=== PATIENT | male | born 1985 | race Two or more races ===

== ENCOUNTER 2017-08-02 15:00 | Emergency (ER) | payer BC, MEDICAID ==
[2017-08-02 15:10] VITALS: BP 141/97
[2017-08-02] MEDS ORDERED: Sodium Chloride 0.9% 10 ML Syringe FLUSH PRN (15:45)
[2017-08-02] MEDS ORDERED: Ondansetron 4 MG/2 ML SDV IVPUSH ONE (15:45)
[2017-08-02] MEDS ORDERED: Sodium Chloride 0.9% 1,000 ML IV SCH (15:45)
[2017-08-02] MEDS ORDERED: HYDROmorphone 1 MG/ML Syringe IVPUSH ONE (17:14)
--- NOTE | 2017-08-02 18:37 | EDM.PDOC ---
ED HPI GENERAL MEDICAL PROBLEM - General Chief Complaint: Chest Pain Stated Complaint: CHEST PAIN Time Seen by Provider: 08/02/17 15:36 Source of Information: Reports: Patient, RN Notes Reviewed - History of Present Illness INITIAL COMMENTS - FREE TEXT/NARRATIVE: 32 year old male comes in with upper abd pain, cramping, feeling of being bloated. Started with discomfort 3 days ago. Many episodes of watery diarrhea yesterday. Decreased appetite, nausea, no vomiting. No fever or chills. Pain does radiate up to lower mid chest. Not short of breath, not coughing any more than usual. Chest Pain Score (Numeric/FACES): 6 - Related Data Allergies Allergy/AdvReac Type Severity Reaction Status Date / Time No Known Allergies Allergy Verified 08/02/17 15:10 Home Meds: Home Meds Ciprofloxacin HCl [Cipro] 500 mg PO Q12HR #10 tablet 08/02/17 [Rx] Hydrocodone/Acetaminophen [[place] 5-325 Tablet] 1 each PO Q4H PRN #10 tablet [Rx] Omeprazole Magnesium [Prilosec Otc] 20 mg PO DAILY 08/02/17 [History] Past Medical History Other HEENT History: Wears glasses Cardiovascular History: Reports: High Cholesterol Other Gastrointestinal History: Umbilical hernia Musculoskeletal History: Reports: Other (See Below) - Past Surgical History GI Surgical History: Reports: Hernia, Abdominal Social & Family History - Tobacco Use Smoking Status *Q: Former Smoker Years of Tobacco use: 10 Packs/Tins Daily: 0.2 Used Tobacco, but Quit: Yes Month Tobacco Last Used: October 2016 - Caffeine Use Caffeine Use: Reports: Coffee - Alcohol Use Days Per Week of Alcohol Use: 2 Number of Drinks Per Day: 7 Total Drinks Per Week: 14 - Recreational Drug Use Recreational Drug Use: No - Living Situation & Occupation Living situation: Reports: Single, with Significant Other, with Family Occupation: Unemployed ED ROS GENERAL - Review of Systems Review Of Systems: See Below Constitutional: Denies: Fever, Chills HEENT: Denies: Sinus Problem, Throat Pain Respiratory: Denies: Shortness of Breath, Pleuritic Chest Pain Cardiovascular: Reports: Chest Pain (lower ant chest) GI/Abdominal: Reports: Abdominal Pain (primarily upper mid abd and R upper abd) , Diarrhea (multiple episoded of watery diarrhea), Decreased Appetite, Nausea. Denies: Vomiting Musculoskeletal: Reports: Neck Pain Skin: Denies: Rash Neurological: Reports: Dizziness. Denies: Headache ED EXAM, GI/ABD - Physical Exam Exam: See Below General Appearance: Alert, Mild Distress Eyes: Bilateral: Normal Appearance Throat/Mouth: Normal Inspection, Normal Oropharynx Neck: Supple Respiratory/Chest: No Respiratory Distress, Lungs Clear, Normal Breath Sounds Cardiovascular: Tachycardia GI/Abdominal Exam: Tender (upper mid abd and R upper abd). No: Guarding, Rebound Back Exam: No: CVA Tenderness (L), CVA Tenderness (R) Extremities: Normal Inspection Neurological: Alert, Oriented, No Motor/Sensory Deficits Skin Exam: Warm, Dry, Normal Color EKG INTERPRETATION EKG Date: 08/02/17 Rhythm: NSR [place]: Normal P-Wave: Present QRS: Normal ST-T: Other (T wave inversion lead III) Course - Vital Signs Last Recorded V/S: Last Vital Signs Temp 97.6 F 08/02/17 15:06 Pulse 111 H 08/02/17 15:06 Resp 18 08/02/17 15:06 BP 141/97 H 08/02/17 15:06 Pulse Ox 94 L 08/02/17 15:06 - Orders/Labs/Meds Orders: Active Orders 24 hr Category Date Time Status EKG 12 Lead [EKG Documentation Completion] [RC] STAT Care 08/02/17 15:43 Active Peripheral IV Care [RC] . DIRECTED Care 08/02/17 15:45 Active Abdomen 2V AP Flat Upright [CR] Stat Exams 08/02/17 17:15 Taken Sodium Chloride 0.9% [Normal Saline] 1,000 ml Med 08/02/17 15:45 Active IV ONETIME Sodium Chloride 0.9% [Saline Flush] Med 08/02/17 15:45 Active 10 ml FLUSH ASDIRECTED PRN Peripheral IV Insertion Adult [OM.PC] Stat Oth 08/02/17 15:44 Ordered Medication Orders Sodium Chloride (Normal Saline) 1,000 mls @ 999 mls/hr IV ONETIME KLARISSA Last Admin: 08/02/17 15:52 Dose: 999 mls/hr Sodium Chloride (Saline Flush) 10 ml FLUSH ASDIRECTED PRN PRN Reason: Keep Vein Open Last Admin: 08/02/17 15:53 Dose: 10 ml Labs: Laboratory Tests 08/02/17 08/02/17 Range/Units 15:28 15:28 WBC 11.23 H (4.23-9.07) K/mm3 RBC 5.68 (4.63-6.08) M/mm3 Hgb 16.7 (13.7-17.5) gm/L Hct 48.0 (40.1-51.0) % MCV 84.5 (79.0-92.2) fl MCH 29.4 (25.7-32.2) pg MCHC 34.8 (32.2-35.5) g/dl RDW Std Deviation 43.7 (35.1-43.9) fL Plt Count 262 (163-337) K/mm3 MPV 10.3 (9.4-12.3) fl Neut % (Auto) 65.5 (34.0-67.9) % Lymph % (Auto) 24.9 (21.8-53.1) % [place] % (Auto) 6.8 (5.3-12.2) % Eos % (Auto) 2.0 (0.8-7.0) Baso % (Auto) 0.4 (0.1-1.2) % Neut # (Auto) 7.35 H (1.78-5.38) K/mm3 Lymph # (Auto) 2.80 (1.32-3.57) K/mm3 [place] # (Auto) 0.76 (0.30-0.82) K/mm3 Eos # (Auto) 0.23 (0.04-0.54) K/mm3 Baso # (Auto) 0.05 (0.01-0.08) K/mm3 Sodium 138 (136-145) mEq/L Potassium 4.1 (3.5-5.1) mEq/L Chloride 101 (98-107) mEq/L Carbon Dioxide 26 (21-32) mEq/L Anion Gap 15.1 H (5-15) BUN 15 (7-18) mg/dL Creatinine 1.0 (0.7-1.3) mg/dL Est Cr Clr Drug Dosing 96.59 mL/min Estimated GFR (MDRD) > 60 (>60) mL/min BUN/Creatinine Ratio 15.0 (14-18) Glucose 97 (74-106) mg/dL Calcium 9.3 (8.5-10.1) mg/dL Total Bilirubin 0.6 (0.2-1.0) mg/dL AST 51 H (15-37) U/L ALT 81 H (16-63) U/L Alkaline Phosphatase 99 (46-116) U/L Total Protein 8.8 H (6.4-8.2) g/dl Albumin 3.8 (3.4-5.0) g/dl Globulin 5.0 gm/dL Albumin/Globulin Ratio 0.8 L (1-2) Lipase 122 (73-393) U/L Meds: Medications Generic Name Dose Route Start Last Admin Trade Name Freq PRN Reason Stop Dose Admin Sodium Chloride 1,000 mls @ 999 mls/hr 08/02/17 15:45 08/02/17 15:52 Normal Saline IV 999 mls/hr ONETIME KLARISSA Administration Sodium Chloride 10 ml 08/02/17 15:45 08/02/17 15:53 Saline Flush FLUSH 10 ml ASDIRECTED PRN Administration Keep Vein Open Discontinued Medications Generic Name Dose Route Start Last Admin Trade Name Freq PRN Reason Stop Dose Admin Hydromorphone HCl 1 mg 08/02/17 17:14 08/02/17 17:33 Dilaudid IVPUSH 08/02/17 17:15 1 mg ONETIME ONE Administration Ondansetron HCl 4 mg 08/02/17 15:45 08/02/17 15:52 Zofran IVPUSH 08/02/17 15:46 4 mg ONETIME ONE Administration Departure - Departure Time of Disposition: 18:28 Disposition: Home, Self-Care 01 Condition: Fair Clinical Impression: Diarrhea Qualifiers: Diarrhea type: unspecified type Qualified Code(s): R19.7 - Diarrhea, unspecified - Discharge Information Prescriptions: Ciprofloxacin HCl [Cipro] 500 mg PO Q12HR #10 tablet Hydrocodone/Acetaminophen [[place] 5-325 Tablet] 1 each PO Q4H PRN #10 tablet PRN Reason: Pain Instructions: Diarrhea, Adult Referrals: PCP,None [Primary Care Provider] - Forms: ED Department Discharge Additional Instructions: Clear liquids until tomorrow afternoon, than careful bland diet as tolerated. Cipro antibiotic 500 mg twice daily for 5 days, start that tonight and take that twice daily until gone. Probiotic twice daily, that is available OTC, pick that up when you get your meds filled tonight. Tylenol for mild to moderate discomfort or Hydrocodone if needed for severe pain. Follow up clinic if not much better within 2 to 3 days as expected, return to ED as needed. - My Orders Last 24 Hours: My Active Orders 08/02/17 15:43 EKG 12 Lead [EKG Documentation Completion] [RC] STAT 08/02/17 15:44 Peripheral IV Insertion Adult [OM.PC] Stat 08/02/17 15:45 Peripheral IV Care [RC] . DIRECTED Sodium Chloride 0.9% [Normal Saline] 1,000 ml IV ONETIME Sodium Chloride 0.9% [Saline Flush] 10 ml FLUSH ASDIRECTED PRN 08/02/17 17:15 Abdomen 2V AP Flat Upright [CR] Stat - Assessment/Plan Last 24 Hours: My Active Orders 08/02/17 15:43 EKG 12 Lead [EKG Documentation Completion] [RC] STAT 08/02/17 15:44 Peripheral IV Insertion Adult [OM.PC] Stat 08/02/17 15:45 Peripheral IV Care [RC] . DIRECTED Sodium Chloride 0.9% [Normal Saline] 1,000 ml IV ONETIME Sodium Chloride 0.9% [Saline Flush] 10 ml FLUSH ASDIRECTED PRN 08/02/17 17:15 Abdomen 2V AP Flat Upright [CR] Stat
--- NOTE | 2017-08-03 09:31 | CR ---
Abdomen: Supine and upright views of the abdomen were obtained. Comparison: No previous study. Bowel gas pattern appears within normal limits. No abnormal calcifications or soft tissue abnormality is seen. No free air is identified. Bony structures are within normal limits. Impression: 1. No abnormality identified on two-view abdominal x-ray. Diagnostic code #1
== END 2017-08-02 18:55 | disposition home or self-care (01) ==
LOC: JD.ED 15:00
DX: R19.7 Diarrhea, unspecified (principal); E78.00 Pure hypercholesterolemia, unspecified; Z79.899 Other long term (current) drug therapy; Z87.891 Personal history of nicotine dependence
CPT/HCPCS: 36415; 74019; 80053; 83690; 85025; 93005; 96361; 96374; 96375; 99285; J1170; J2405; J7040; J7050; 93010; 99284-25

== ENCOUNTER 2018-11-28 15:11 | Emergency (ER) | payer BC ==
--- NOTE | 2018-11-28 15:50 | EDM.PDOC ---
ED HPI GENERAL MEDICAL PROBLEM - General Chief Complaint: Chest Pain Stated Complaint: CHEST PAIN Time Seen by Provider: 11/28/18 15:21 Source of Information: Reports: Patient History Limitations: Reports: No Limitations - History of Present Illness INITIAL COMMENTS - FREE TEXT/NARRATIVE: The patient presents with chest pain. This has been going on since Tuesday. He was sleeping on his left side when it started that night. The pain comes and goes. There is nothing that he notices makes it worse or better. He has no history of heart problems. He has diabetes. He ran out of his metformin 3 weeks ago and did not get it refilled. He quit smoking about 2 years ago. He has no shortness of breath. He has no abdominal pain, nausea or vomiting. He says right before coming to the ER he urinated and had some dysuria. Onset: Gradual Duration: Day(s): Location: Reports: Chest Quality: Reports: Sharp Severity: Mild Improves with: Reports: None Worsens with: Reports: None Associated Symptoms: Reports: Chest Pain. 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 Chest Pain Score (Numeric/FACES): 5 - Related Data Allergies Allergy/AdvReac Type Severity Reaction Status Date / Time No Known Allergies Allergy Verified 11/28/18 15:25 Home Meds: Home Meds Omeprazole Magnesium [Prilosec Otc] 20 mg PO DAILY 08/02/17 [History] metFORMIN [Glucophage XR] 750 mg PO DAILY 11/28/18 [History] Past Medical History Other HEENT History: Wears glasses Cardiovascular History: Reports: High Cholesterol Respiratory History: Reports: Sleep Apnea Gastrointestinal History: Reports: GERD Other Gastrointestinal History: Umbilical hernia Musculoskeletal History: Reports: Other (See Below) Endocrine/Metabolic History: Reports: Diabetes, Type II - Past Surgical History GI Surgical History: Reports: Hernia, Abdominal Social & Family History - Tobacco Use Smoking Status *Q: Former Smoker Used Tobacco, but Quit: Yes Month/Year Tobacco Last Used: 2016 - Caffeine Use Caffeine Use: Reports: Coffee, Energy Drinks, Soda - Recreational Drug Use Recreational Drug Use: No - Living Situation & Occupation Living situation: Reports: Single, with Significant Other, with Family Occupation: Unemployed ED ROS GENERAL - Review of Systems Review Of Systems: See Below Constitutional: Reports: No Symptoms HEENT: Reports: No Symptoms Respiratory: Reports: No Symptoms Cardiovascular: Reports: Chest Pain Endocrine: Reports: No Symptoms GI/Abdominal: Reports: No Symptoms : Reports: Dysuria Musculoskeletal: Reports: No Symptoms ED EXAM, GENERAL - Physical Exam Exam: See Below Exam Limited By: No Limitations General Appearance: Alert, No Apparent Distress Ears: Normal External Exam Nose: Normal Inspection Head: Atraumatic, Normocephalic Neck: Normal Inspection Respiratory/Chest: No Respiratory Distress, Lungs Clear, Normal Breath Sounds Cardiovascular: Regular Rate, Rhythm, No Edema, No Murmur GI/Abdominal: Soft, Non-Tender, No Organomegaly, No Mass Back Exam: Normal Inspection Extremities: Normal Inspection Neurological: Alert, Oriented, No Motor/Sensory Deficits EKG INTERPRETATION EKG Date: 11/28/18 Time: 15:44 Rhythm: NSR Rate (Beats/Min): 88 [place]: Normal P-Wave: Present QRS: Normal ST-T: Normal QT: Normal Course - Vital Signs Last Recorded V/S: Last Vital Signs Temp 98.7 F 11/28/18 15:20 Pulse 95 11/28/18 15:20 Resp 30 H 11/28/18 15:20 BP 152/99 H 11/28/18 15:20 Pulse Ox 95 11/28/18 15:20 - Orders/Labs/Meds Orders: Active Orders 24 hr Category Date Time Status Cardiac Monitoring [RC] . DIRECTED Care 11/28/18 15:42 Active EKG Documentation Completion [RC] ASDIRECTED Care 11/28/18 15:27 Active Chest 2V [CR] Stat Exams 11/28/18 15:43 Taken EKG 12 Lead [EK] Stat Ther 11/28/18 15:27 Ordered Labs: Laboratory Tests 11/28/18 11/28/18 11/28/18 Range/Units 16:15 16:15 16:15 WBC 11.69 H (4.23-9.07) K/mm3 RBC 6.06 (4.63-6.08) M/mm3 Hgb 17.0 (13.7-17.5) gm/L Hct 50.2 (40.1-51.0) % MCV 82.8 D (79.0-92.2) fl MCH 28.1 (25.7-32.2) pg MCHC 33.9 (32.2-35.5) g/dl RDW Std Deviation 46.6 H (35.1-43.9) fL Plt Count 240 (163-337) K/mm3 MPV 10.3 (9.4-12.3) fl Neut % (Auto) 68.2 H (34.0-67.9) % Lymph % (Auto) 22.5 (21.8-53.1) % [place] % (Auto) 6.2 (5.3-12.2) % Eos % (Auto) 2.4 (0.8-7.0) Baso % (Auto) 0.5 (0.1-1.2) % Neut # (Auto) 7.98 H (1.78-5.38) K/mm3 Lymph # (Auto) 2.63 (1.32-3.57) K/mm3 [place] # (Auto) 0.72 (0.30-0.82) K/mm3 Eos # (Auto) 0.28 (0.04-0.54) K/mm3 Baso # (Auto) 0.06 (0.01-0.08) K/mm3 Manual Slide Review Normal smear D-Dimer, Quantitative 0.34 (0.19-0.50) mg/L Sodium 134 L (136-145) mEq/L Potassium 3.8 (3.5-5.1) mEq/L Chloride 100 (98-107) mEq/L Carbon Dioxide 24 (21-32) mEq/L Anion Gap 13.8 (5-15) BUN 19 H (7-18) mg/dL Creatinine 1.0 (0.7-1.3) mg/dL Est Cr Clr Drug Dosing 95.70 mL/min Estimated GFR (MDRD) > 60 (>60) mL/min BUN/Creatinine Ratio 19.0 H (14-18) Glucose 94 (74-106) mg/dL Calcium 9.0 (8.5-10.1) mg/dL Total Bilirubin 0.4 (0.2-1.0) mg/dL AST 27 (15-37) U/L ALT 57 (16-63) U/L Alkaline Phosphatase 100 (46-116) U/L Troponin I < 0.017 (0.00-0.056) ng/mL Total Protein 8.4 H (6.4-8.2) g/dl Albumin 3.5 (3.4-5.0) g/dl Globulin 4.9 gm/dL Albumin/Globulin Ratio 0.7 L (1-2) Urine Color (Yellow) Urine Appearance (Clear) Urine pH (5.0-8.0) Ur Specific [place] (1.005-1.030) Urine Protein (Negative) Urine Glucose (UA) (Negative) Urine Ketones (Negative) Urine Occult Blood (Negative) Urine Nitrite (Negative) Urine Bilirubin (Negative) Urine Urobilinogen (0.2-1.0) Ur Leukocyte Esterase (Negative) Urine RBC (0-5) /hpf Urine WBC (0-5) /hpf Ur Squamous Epith Cells (0-5) /hpf Urine Bacteria (FEW) /hpf Urine Mucus (FEW) /hpf 11/28/18 Range/Units 16:25 WBC (4.23-9.07) K/mm3 RBC (4.63-6.08) M/mm3 Hgb (13.7-17.5) gm/L Hct (40.1-51.0) % MCV (79.0-92.2) fl MCH (25.7-32.2) pg MCHC (32.2-35.5) g/dl RDW Std Deviation (35.1-43.9) fL Plt Count (163-337) K/mm3 MPV (9.4-12.3) fl Neut % (Auto) (34.0-67.9) % Lymph % (Auto) (21.8-53.1) % [place] % (Auto) (5.3-12.2) % Eos % (Auto) (0.8-7.0) Baso % (Auto) (0.1-1.2) % Neut # (Auto) (1.78-5.38) K/mm3 Lymph # (Auto) (1.32-3.57) K/mm3 [place] # (Auto) (0.30-0.82) K/mm3 Eos # (Auto) (0.04-0.54) K/mm3 Baso # (Auto) (0.01-0.08) K/mm3 Manual Slide Review D-Dimer, Quantitative (0.19-0.50) mg/L Sodium (136-145) mEq/L Potassium (3.5-5.1) mEq/L Chloride (98-107) mEq/L Carbon Dioxide (21-32) mEq/L Anion Gap (5-15) BUN (7-18) mg/dL Creatinine (0.7-1.3) mg/dL Est Cr Clr Drug Dosing mL/min Estimated GFR (MDRD) (>60) mL/min BUN/Creatinine Ratio (14-18) Glucose (74-106) mg/dL Calcium (8.5-10.1) mg/dL Total Bilirubin (0.2-1.0) mg/dL AST (15-37) U/L ALT (16-63) U/L Alkaline Phosphatase (46-116) U/L Troponin I (0.00-0.056) ng/mL Total Protein (6.4-8.2) g/dl Albumin (3.4-5.0) g/dl Globulin gm/dL Albumin/Globulin Ratio (1-2) Urine Color Yellow (Yellow) Urine Appearance Clear (Clear) Urine pH 6.0 (5.0-8.0) Ur Specific [place] 1.020 (1.005-1.030) Urine Protein Negative (Negative) Urine Glucose (UA) Negative (Negative) Urine Ketones Negative (Negative) Urine Occult Blood Trace-lysed H (Negative) Urine Nitrite Negative (Negative) Urine Bilirubin Negative (Negative) Urine Urobilinogen 0.2 (0.2-1.0) Ur Leukocyte Esterase Negative (Negative) Urine RBC Not seen (0-5) /hpf Urine WBC Not seen (0-5) /hpf Ur Squamous Epith Cells 5-10 H (0-5) /hpf Urine Bacteria Rare (FEW) /hpf Urine Mucus Not seen (FEW) /hpf - Re-Assessments/Exams Free Text/Narrative Re-Assessment/Exam: 11/28/18 15:52 I ordered an EKG, CXR, labs and UA. 11/28/18 17:38 His EKG shows a NSR with no acute changes. His CXR looks good. His CBC and CMP look good. His troponin is negative. 11/28/18 17:40 His UA shows no UTI. He feels better. I will discharge him home. Departure - Departure Time of Disposition: 17:45 Disposition: Home, Self-Care 01 Condition: Good Clinical Impression: Atypical chest pain, Dysuria Referrals: Shirin Braswell, [employer] [Primary Care Provider] - 1 Week Forms: ED Department Discharge Additional Instructions: Take tylenol or motrin for pain. Follow up with Shirin Braswell in 1 week. Please return if you are worse. - My Orders Last 24 Hours: My Active Orders 11/28/18 15:27 EKG Documentation Completion [RC] ASDIRECTED EKG 12 Lead [EK] Stat 11/28/18 15:42 Cardiac Monitoring [RC] . DIRECTED 11/28/18 15:43 Chest 2V [CR] Stat - Assessment/Plan Last 24 Hours: My Active Orders 11/28/18 15:27 EKG Documentation Completion [RC] ASDIRECTED EKG 12 Lead [EK] Stat 11/28/18 15:42 Cardiac Monitoring [RC] . DIRECTED 11/28/18 15:43 Chest 2V [CR] Stat
[2018-11-28 18:01] VITALS: BP 133/95
--- NOTE | 2018-11-29 11:40 | CR ---
Chest: PA and lateral views of the chest were obtained. Comparison: Prior chest x-ray of 09/06/17. Heart size and mediastinum are normal. Lungs show no acute parenchymal change. Slight scarring is noted within the left lung base. Bony structures appear within normal limits for the patient's age. Impression: 1. Nothing acute is identified. Diagnostic code #2
== END 2018-11-28 17:54 | disposition home or self-care (01) ==
LOC: JD.ED 15:11
DX: R07.89 Other chest pain (principal); R30.0 Dysuria; E11.9 Type 2 diabetes mellitus without complications; K21.9 Gastro-esophageal reflux disease without esophagitis; Z79.84 Long term (current) use of oral hypoglycemic drugs; Z79.899 Other long term (current) drug therapy; Z87.891 Personal history of nicotine dependence
CPT/HCPCS: 36415; 71046; 71046-26; 80053; 81001; 84484; 85025; 85379; 93005; 93010; 99284; 99285-25

== ENCOUNTER 2021-07-20 09:18 | Emergency (ER) | payer BC ==
[2021-07-20 09:34] VITALS: BP 141/85; PULSE 65
[2021-07-20] MEDS ORDERED: Ibuprofen 800 MG Tab PO ONE (09:55)
--- NOTE | 2021-07-20 09:59 | EDM.PDOC ---
ED HPI GENERAL MEDICAL PROBLEM - General Chief Complaint: Respiratory Problem Stated Complaint: LUNG ISSUES, SOB, CHEST HEAVINESS Time Seen by Provider: 07/20/21 09:56 Source of Information: Reports: Patient History Limitations: Reports: No Limitations - History of Present Illness INITIAL COMMENTS - FREE TEXT/NARRATIVE: Patient is a 36-year-old male with history of obesity presenting with a chief complaint of right-sided chest discomfort as well as "tasting an infection in his mouth". Patient states that he states to this "infection" for about a week now. He states last time he had similar symptoms was due to a dental issue and that he had a tooth extracted. This was several years ago. Patient otherwise denies oral swelling, dental pain, throat pain, cough, nasal congestion, headache. Patient additionally complains of right-sided chest discomfort which is described as a heaviness. Seems to be worse at night when he is lying down and when he first gets up in the morning. He does not have any worsening symptoms with exertion. Denies any pain with deep breathing. Denies any lower extremity swelling or calf pain. No prior history of DVT or PE. Denies surgeries or hospitalizations in the last 3 months. Patient states he also would like his right pinky to be checked out since he is here. He states it is uncomfortable but is unsure how long its been prob lematic. Chest Pain Score (Numeric/FACES): 2 - Related Data Allergies Allergy/AdvReac Type Severity Reaction Status Date / Time No Known Allergies Allergy Verified 07/20/21 09:34 Past Medical History HEENT History: Reports: Impaired Vision Other HEENT History: Wears glasses Cardiovascular History: Reports: High Cholesterol Respiratory History: Reports: Sleep Apnea Other Respiratory History: CPAP Gastrointestinal History: Reports: GERD Other Gastrointestinal History: Umbilical hernia Musculoskeletal History: Reports: Other (See Below) Endocrine/Metabolic History: Reports: Diabetes, Type II, Obesity/BMI 30+ - Past Surgical History GI Surgical History: Reports: Hernia, Abdominal Other GI Surgeries/Procedures: Umbilical hernia repair Social & Family History - Tobacco Use Tobacco Use Status *Q: Never Tobacco User - Caffeine Use Caffeine Use: Reports: Tea - Recreational Drug Use Recreational Drug Use: No - Living Situation & Occupation Living situation: Reports: Single, with Significant Other, with Family Occupation: Unemployed ED ROS GENERAL - Review of Systems Review Of Systems: See Below Free Text/Narrative/Comment: In addition to that documented in the HPI above, the additional ROS was obtained: Constitutional: Denies fevers or chills Eyes: Denies vision changes ENMT: Denies sore throat CV: Per HPI Resp: Denies SOB GI: Denies vomiting or diarrhea : Denies painful urination MSK: Denies recent trauma Skin: Denies new rashes Neuro: Denies new numbness or tingling or weakness Endocrine: Denies unexpected weight loss Heme: Denies bleeding disorders ED EXAM, GENERAL - Physical Exam Exam: See Below Free Text/Narrative:: I have reviewed the triage vital signs Const: Well nourished, well developed, appears stated age Eyes: Pupils Equal and reactive to light bilaterally, no conjunctival injection HENT: Oropharynx is normal. There is no evidence of swelling around the gums. Voice is normal. Posterior pharynx is benign. No signs of trauma or swelling, Neck supple without meningismus CV: Regular Rate Rhythm, Warm, well-perfused extremities RESP: Unlabored respiratory effort GI: soft, non-tender, non-distended, no masses MSK: No gross deformities appreciated Skin: Warm, dry. No rashes Neuro: Alert, calculus tutor II-XII grossly intact. Sensation and motor function of extremities grossly intact. Psych: Appropriate mood and affect. #1 Interpretation EKG Date: 07/20/21 Time: 10:06 Rhythm: NSR Rate (Beats/Min): 67 [place]: Normal P-Wave: Present QRS: Normal ST-T: Normal QT: Normal Comparison: No Change EKG Interpretation Comments: Normal EKG Course - Vital Signs Last Recorded V/S: Last Vital Signs Temp 36.6 C 07/20/21 09:30 Pulse 65 07/20/21 09:30 Resp 16 07/20/21 09:30 BP 141/85 H 07/20/21 09:30 Pulse Ox 98 07/20/21 09:30 - Orders/Labs/Meds Labs: Laboratory Tests 07/20/21 07/20/21 Range/Units 10:14 10:14 WBC 8.81 (4.23-9.07) K/mm3 RBC 5.26 (4.63-6.08) M/mm3 Hgb 15.2 D (13.7-17.5) gm/dl Hct 46.3 (40.1-51.0) % MCV 88.0 D (79.0-92.2) fl MCH 28.9 (25.7-32.2) pg MCHC 32.8 (32.2-35.5) g/dl RDW Std Deviation 47.0 H (35.1-43.9) fL Plt Count 250 (163-337) K/mm3 MPV 10.0 (9.4-12.3) fl Neut % (Auto) 61.9 (34.0-67.9) % Lymph % (Auto) 29.3 (21.8-53.1) % [place] % (Auto) 6.1 (5.3-12.2) % Eos % (Auto) 2.0 (0.8-7.0) Baso % (Auto) 0.5 (0.1-1.2) % Neut # (Auto) 5.45 H (1.78-5.38) K/mm3 Lymph # (Auto) 2.58 (1.32-3.57) K/mm3 [place] # (Auto) 0.54 (0.30-0.82) K/mm3 Eos # (Auto) 0.18 (0.04-0.54) K/mm3 Baso # (Auto) 0.04 (0.01-0.08) K/mm3 Sodium 140 (136-145) mEq/L Potassium 4.2 (3.5-5.1) mEq/L Chloride 102 (98-107) mEq/L Carbon Dioxide 26 (21-32) mEq/L Anion Gap 16.2 H (5-15) BUN 13 (7-18) mg/dL Creatinine 0.9 (0.7-1.3) mg/dL Est Cr Clr Drug Dosing 103.38 mL/min Estimated GFR (MDRD) > 60 (>60) mL/min BUN/Creatinine Ratio 14.4 (14-18) Glucose 96 (70-99) mg/dL Calcium 9.0 (8.5-10.1) mg/dL Total Bilirubin 0.9 (0.2-1.0) mg/dL AST 22 (15-37) U/L ALT 41 (16-63) U/L Alkaline Phosphatase 108 (46-116) U/L Troponin I < 0.017 (0.00-0.056) ng/mL Total Protein 8.1 (6.4-8.2) g/dl Albumin 3.4 (3.4-5.0) g/dl Globulin 4.7 gm/dL Albumin/Globulin Ratio 0.7 L (1-2) Meds: Medications Discontinued Medications Generic Name Dose Route Start Last Admin Trade Name Prashant PRN Reason Stop Dose Admin Ibuprofen 800 mg 07/20/21 09:55 07/20/21 10:18 Ibuprofen 800 Mg Tab PO 07/20/21 09:56 Not Given ONETIME ONE Departure - Departure Time of Disposition: 11:07 Disposition: Home, Self-Care 01 Clinical Impression: Atypical chest pain - Discharge Information Instructions: Nonspecific Chest Pain, Adult Referrals: PCP,None [Primary Care Provider] - Forms: ED Department Discharge Additional Instructions: I recommend following up with a dentist for the taste in your mouth. Otherwise, follow-up with primary care in the next several days for evaluation of chest discomfort. Return should symptoms worsen or if you have any other emergent concerns. Sepsis Event Note (ED) - Evaluation Sepsis Screening Result: No Definite Risk - Focused Exam Vital Signs: Vital Signs Temp Pulse Resp BP Pulse Ox 07/20/21 09:30 36.6 C 65 16 141/85 H 98 - Assessment/Plan Assessment:: Patient 36-year-old male presenting to the emergency room with a complaint of right-sided chest pain and abnormal taste in his mouth. Patient work-up in the emergency room was unremarkable. Laboratory studies and EKG along with chest x- ray were performed. Differential diagnosis considered for this patient include dental infection, upper respiratory infection, pneumonia, ACS, PE. Patient is low risk heart score and PERC negative. His laboratory studies and chest x-ray along with EKG are unremarkable for acute abnormalities. Patient will be given instructions for follow-up with primary care and appropriate return precautions. Patient agrees with this plan of care discharged in stable condition. He was also informed that he should follow-up with primary care to evaluate his right pinky. On brief exam no evidence of significant infection or traumatic injury. Seems to be a chronic condition.
--- NOTE | 2021-07-20 11:07 | CR ---
EXAM: XR CHEST 1 VIEW LOCATION: [facility] [employer] DATE/TIME: 07/20/2021 9:57 AM INDICATION: Dyspnea. COMPARISON: 11/28/2018. IMPRESSION: Heart size is magnified in AP projection with normal vascularity. Mild chronic elevation left hemidiaphragm unchanged. No focal consolidation, pneumothorax nor pleural effusion. SIGNED BY: Dell Najera MD 07/20/2021 11:21 AM [facility]
== END 2021-07-20 11:17 | disposition home or self-care (01) ==
LOC: JD.ED 09:18
DX: R07.89 Other chest pain (principal); E78.00 Pure hypercholesterolemia, unspecified; E11.9 Type 2 diabetes mellitus without complications; E66.9 Obesity, unspecified; Z68.43 Body mass index [BMI] 50.0-59.9, adult
CPT/HCPCS: 36415; 71045; 71045-26; 80053; 84484; 85025; 93005; 99285-25

== ENCOUNTER 2022-09-22 16:15 | Emergency (ER) | payer BC, OTHER ==
[2022-09-22 16:24] VITALS: BP 128/73; PULSE 87
[2022-09-22] MEDS ORDERED: Sodium Chloride 0.9% 10 ML Syringe FLUSH PRN (16:24)
== END 2022-09-22 18:11 | disposition home or self-care (01) ==
LOC: JD.ED 16:15
DX: R07.89 Other chest pain (principal); H81.10 Benign paroxysmal vertigo, unspecified ear; E66.9 Obesity, unspecified; Z68.43 Body mass index [BMI] 50.0-59.9, adult; Z87.891 Personal history of nicotine dependence
CPT/HCPCS: 36415; 71045; 80053; 83735; 84484; 85025; 85379; 85610; 93005; 99285; J3490; 93010; 99284

== ENCOUNTER 2024-03-17 14:02 | Emergency (ER) | payer OTHER ==
[2024-03-17 19:27] VITALS: BP 142/81; PULSE 82
== END 2024-03-17 16:26 | disposition home or self-care (01) ==
LOC: JD.ED 14:02
DX: G51.0 Bell's palsy (principal); E78.00 Pure hypercholesterolemia, unspecified; Z79.899 Other long term (current) drug therapy
CPT/HCPCS: 70450; 70450-26; 99283; 99285